=== PATIENT | male | born 1970 | race Caucasian/White ===

== ENCOUNTER 2023-11-01 23:14 | Inpatient (IN) | payer BC ==
[2023-11-02] MEDS ORDERED: POLYETHYLENE GLYCOL (HEALTHYLAX) 3350 17 GM PACKET PO PRN (00:04)
[2023-11-02] MEDS ORDERED: ONDANSETRON *ODT* 4 MG TABLET SL PRN (00:04)
[2023-11-02] MEDS ORDERED: P-EPHED 60MG/TRIPROLIDI 2.5MG TABLET PO PRN (00:04)
[2023-11-02] MEDS ORDERED: guaiFENesin 600 MG TABLET.ER (FP) PO PRN (00:04)
[2023-11-02] MEDS ORDERED: ACETAMINOPHEN 325 MG TABLET (FP) PO PRN (00:04)
[2023-11-02] MEDS ORDERED: IBUPROFEN 400 MG TABLET (FP) PO PRN (00:04)
[2023-11-02] MEDS ORDERED: BENZOCAINE/MENTHOL (CHLORASEPTIC ) LOZENGE MM PRN (00:04)
[2023-11-02] MEDS ORDERED: IBUPROFEN 600 MG TABLET (FP) PO PRN (00:04)
[2023-11-02] MEDS ORDERED: MAGNESIUM HYDROX 2400MG/30ML ORAL SUSPENSION 30 ML CUP PO PRN (00:04)
[2023-11-02] MEDS ORDERED: BENZONATATE 200 MG CAPSULE PO PRN (00:04)
[2023-11-02] MEDS ORDERED: LOPERAMIDE HCL 2 MG CAPSULE PO PRN (00:04)
[2023-11-02] MEDS ORDERED: DICYCLOMINE HCL 10 MG CAPSULE PO PRN (00:04)
[2023-11-02 00:05] VITALS: BMI 23.1
[2023-11-02] MEDS ORDERED: chlordiazePOXIDE HCL 25 MG CAPSULE PO PRN (00:06)
[2023-11-02] MEDS: chlordiazePOXIDE HCL 25 MG CAPSULE PO ONE (03:00)
[2023-11-02] MEDS ORDERED: chlordiazePOXIDE HCL 25 MG CAPSULE ONE (05:59)
[2023-11-02] MEDS: chlordiazePOXIDE HCL 25 MG CAPSULE PO SCH (06:00)
[2023-11-02] MEDS: PRENATAL VITAMINS W/ FOLIC ACID TABLET (FP) PO SCH (10:46)
[2023-11-02] MEDS: hydrOXYzine PAMOATE 25 MG CAPSULE (FP) PO PRN (10:46)
[2023-11-02] MEDS: THIAMINE 100 MG TABLET PO SCH (23:22)
[2023-11-02] MEDS: MELATONIN 5 MG TABLETS PO SCH (23:22)
[2023-11-03] MEDS: chlordiazePOXIDE HCL 25 MG CAPSULE PO SCH (05:58)
[2023-11-03 11:02] LABS: MCH 31.1 pg (25.7-33.7); MCHC 33.4 g/dl (32.0-35.9); MEAN CELL VOLUME 93.2 fl (80-96); MEAN PLT VOLUME 8.8 fl (7.5-11.1); PLATELET COUNT 183 10^3/uL (134-434); RBC 4.19 M/mm3 (4.00-5.60); RDW 14.6 % (11.9-15.9); WHITE BLOOD COUNT 3.9 K/mm3 (4.0-10.0)
[2023-11-03] MEDS: EMPAGLIFLOZIN (JARDIANCE) 10 MG TABLET PO SCH (19:38)
[2023-11-03] MEDS: metFORMIN HCL 500 MG TABLET (FP) PO SCH (22:23)
[2023-11-03] MEDS: METHOCARBAMOL 500 MG TABLET PO PRN (22:25)
[2023-11-04] MEDS ORDERED: chlordiazePOXIDE HCL 10 MG CAPSULE PO PRN
[2023-11-04] MEDS: chlordiazePOXIDE HCL 10 MG CAPSULE PO SCH (05:44)
[2023-11-04] MEDS: INSULIN ASPART SLIDING SCALE (NOVOLOG) 1 VIAL SQ SCH (07:38)
[2023-11-05] MEDS: chlordiazePOXIDE HCL 10 MG CAPSULE PO SCH (05:35)
[2023-11-05] MEDS: MAG HYDROX/AL HYDROX/SIMETH 30 ML UNIT-DOSE CUP PO PRN (14:38)
[2023-11-05] MEDS: BISMUTH SUBSALICYLATE 524 MG/30 ML PO PRN (17:16)
[2023-11-06] MEDS: chlordiazePOXIDE HCL 10 MG CAPSULE PO ONE (05:42)
[2023-11-06] MEDS ORDERED: INSULIN ASPART SLIDING SCALE (NOVOLOG) 1 VIAL SQ ONE (05:48)
[2023-11-06 09:03] VITALS: BP 142/96; PULSE 112; RESP 20; TEMP 97.6
== END 2023-11-06 09:28 | disposition home or self-care (01) | DRG 775 ==
LOC: YASAS 23:14 → Y3N 11-02 01:53
PROVIDERS: ADMIT Allergy & Immunology; ATTEND Allergy & Immunology
PROC: HZ2ZZZZ Detoxification Services for Substance Abuse Treatment (ICD-10-PCS; principal; 2023-11-02)
DX: F10.230 Alcohol dependence with withdrawal, uncomplicated (principal); E11.9 Type 2 diabetes mellitus without complications; Z79.84 Long term (current) use of oral hypoglycemic drugs
CPT/HCPCS: 36415; 80305; 82962; 85027; 86780; 93005; 93010

== ENCOUNTER 2023-11-07 23:45 | Inpatient (IN) | payer BC ==
[2023-11-08 00:31] VITALS: BMI 27.8
[2023-11-08] MEDS ORDERED: IBUPROFEN 600 MG TABLET (FP) PO PRN (08:00)
[2023-11-08] MEDS ORDERED: LORazepam 1 MG TABLET PO PRN (08:00)
[2023-11-08] MEDS ORDERED: BISMUTH SUBSALICYLATE 262 MG/15 ML BTL PO PRN (08:00)
[2023-11-08] MEDS ORDERED: hydrOXYzine PAMOATE 25 MG CAPSULE (FP) PO PRN (08:00)
[2023-11-08] MEDS ORDERED: IBUPROFEN 400 MG TABLET (FP) PO PRN (08:00)
[2023-11-08] MEDS ORDERED: DICYCLOMINE HCL 10 MG CAPSULE PO PRN (08:00)
[2023-11-08] MEDS ORDERED: BENZOCAINE/MENTHOL (CHLORASEPTIC ) LOZENGE MM PRN (08:00)
[2023-11-08] MEDS ORDERED: LOPERAMIDE HCL 2 MG CAPSULE PO PRN (08:00)
[2023-11-08] MEDS ORDERED: BENZONATATE 200 MG CAPSULE PO PRN (08:00)
[2023-11-08] MEDS ORDERED: NALOXONE HCL (KLOXXADO) 8 MG SPRAY NS PRN (08:00)
[2023-11-08] MEDS ORDERED: ONDANSETRON *ODT* 4 MG TABLET SL PRN (08:00)
[2023-11-08] MEDS ORDERED: MAG HYDROX/AL HYDROX/SIMETH 30 ML UNIT-DOSE CUP PO PRN (08:00)
[2023-11-08] MEDS ORDERED: guaiFENesin 600 MG TABLET.ER (FP) PO PRN (08:00)
[2023-11-08] MEDS ORDERED: ACETAMINOPHEN 325 MG TABLET (FP) PO PRN (08:00)
[2023-11-08] MEDS ORDERED: POLYETHYLENE GLYCOL (HEALTHYLAX) 3350 17 GM PACKET PO PRN (08:00)
[2023-11-08] MEDS ORDERED: MAGNESIUM HYDROX 2400MG/30ML ORAL SUSPENSION 30 ML CUP PO PRN (08:00)
[2023-11-08] MEDS ORDERED: NALOXONE HCL 0.4 MG/ML VIAL IM PRN (08:00)
[2023-11-08] MEDS ORDERED: EMPAGLIFLOZIN (JARDIANCE) 10 MG TABLET PO SCH (10:00)
[2023-11-08] MEDS: LORazepam 2 MG TABLET PO SCH (10:36)
[2023-11-08] MEDS: EMPAGLIFLOZIN (JARDIANCE) 10 MG TABLET PO SCH (10:36)
[2023-11-08] MEDS: metFORMIN HCL 500 MG TABLET (FP) PO SCH (10:36)
[2023-11-08] MEDS: PRENATAL VITAMINS W/ FOLIC ACID TABLET (FP) PO SCH (10:37)
[2023-11-08] MEDS: INSULIN ASPART SLIDING SCALE (NOVOLOG) 1 VIAL SQ SCH (11:20)
[2023-11-08] MEDS: ACAMPROSATE CALCIUM 333 MG TABLET.DR PO SCH (13:25)
[2023-11-08] MEDS: THIAMINE 100 MG TABLET PO SCH (22:28)
[2023-11-08] MEDS: METHOCARBAMOL 500 MG TABLET PO PRN (22:29)
[2023-11-08] MEDS: MELATONIN 5 MG TABLETS PO SCH (22:29)
[2023-11-09] MEDS ORDERED: INSULIN ASPART SLIDING SCALE (NOVOLOG) 1 VIAL SQ ONE (06:41)
[2023-11-09 12:36] LABS: HEMATOCRIT 42.3 % (35.4-49); HEMOGLOBIN 14.6 GM/dL (11.7-16.9); MCHC 34.4 g/dl (32.0-35.9); MEAN CELL VOLUME 93.1 fl (80-96); MEAN PLT VOLUME 9.1 fl (7.5-11.1); PLATELET COUNT 216 10^3/uL (134-434); RBC 4.55 M/mm3 (4.00-5.60); WHITE BLOOD COUNT 5.2 K/mm3 (4.0-10.0)
[2023-11-09 12:57] LABS: POTASSIUM 4.1 mmol/L (3.5-5.1)
[2023-11-09 13:02] LABS: CALCIUM 9.3 mg/dL (8.5-10.1)
[2023-11-09 13:03] LABS: ALBUMIN 3.4 g/dl (3.4-5.0)
[2023-11-09 13:05] LABS: BILIRUBIN,TOTAL 0.7 mg/dL (0.2-1)
[2023-11-09 13:06] LABS: CREATININE 0.9 mg/dL (0.55-1.3)
[2023-11-09 13:08] LABS: TOT PROT 6.7 g/dl (6.4-8.2)
[2023-11-09] MEDS: LACTULOSE 20 GM/30 ML UDC (FOR ORAL USE ONLY) PO SCH (22:26)
[2023-11-10] MEDS: LORazepam 1 MG TABLET PO SCH (05:59)
[2023-11-10] MEDS ORDERED: INSULIN ASPART SLIDING SCALE (NOVOLOG) 1 VIAL SQ ONE (06:54)
[2023-11-10 09:29] VITALS: PULSE 93
[2023-11-10 13:03] VITALS: BP 140/100; RESP 16; TEMP 97.6
[2023-11-11] MEDS ORDERED: LORazepam 0.5 MG TABLET PO PRN
[2023-11-11] MEDS ORDERED: LORazepam 0.5 MG TABLET PO SCH (05:00)
[2023-11-12] MEDS ORDERED: LORazepam 0.5 MG TABLET PO ONE (05:00)
== END 2023-11-10 13:05 | disposition left against medical advice (07) | DRG 770 ==
LOC: YASAS 23:45 → Y3N 11-08 08:12
PROVIDERS: ADMIT Allergy & Immunology; ATTEND Surgery
PROC: HZ2ZZZZ Detoxification Services for Substance Abuse Treatment (ICD-10-PCS; principal; 2023-11-08)
DX: F10.230 Alcohol dependence with withdrawal, uncomplicated (principal); E11.65 Type 2 diabetes mellitus with hyperglycemia; Z79.84 Long term (current) use of oral hypoglycemic drugs; R79.89 Other specified abnormal findings of blood chemistry
CPT/HCPCS: 36415; 80053; 80305; 80307; 82140; 82962; 85027; 86780; 93005; 93010

== ENCOUNTER 2023-12-14 14:21 | Inpatient (IN) | payer BC ==
[2023-12-14 15:32] VITALS: BMI 25.1
[2023-12-14] MEDS ORDERED: NICOTINE POLACRILEX 2 MG LOZENGE BC PRN (20:00)
[2023-12-14] MEDS ORDERED: ONDANSETRON *ODT* 4 MG TABLET SL PRN (20:00)
[2023-12-14] MEDS ORDERED: LOPERAMIDE HCL 2 MG CAPSULE PO PRN (20:00)
[2023-12-14] MEDS ORDERED: BENZONATATE 200 MG CAPSULE PO PRN (20:00)
[2023-12-14] MEDS ORDERED: MAGNESIUM HYDROX 2400MG/30ML ORAL SUSPENSION 30 ML CUP PO PRN (20:00)
[2023-12-14] MEDS ORDERED: NICOTINE POLACRILEX 2 MG GUM BUC PRN (20:00)
[2023-12-14] MEDS ORDERED: BISMUTH SUBSALICYLATE 524 MG/30 ML PO PRN (20:00)
[2023-12-14] MEDS ORDERED: guaiFENesin 600 MG TABLET.ER (FP) PO PRN (20:00)
[2023-12-14] MEDS ORDERED: BENZOCAINE/MENTHOL (CHLORASEPTIC ) LOZENGE MM PRN (20:00)
[2023-12-14] MEDS ORDERED: POLYETHYLENE GLYCOL (HEALTHYLAX) 3350 17 GM PACKET PO PRN (20:00)
[2023-12-14] MEDS ORDERED: MAG HYDROX/AL HYDROX/SIMETH 30 ML UNIT-DOSE CUP PO PRN (20:00)
[2023-12-14] MEDS ORDERED: IBUPROFEN 400 MG TABLET (FP) PO PRN (20:00)
[2023-12-14] MEDS ORDERED: ACETAMINOPHEN 325 MG TABLET (FP) PO PRN (20:00)
[2023-12-14] MEDS ORDERED: MELATONIN 5 MG TABLETS ONE (21:53)
[2023-12-14] MEDS ORDERED: IBUPROFEN 600 MG TABLET (FP) PO ONE (21:53)
[2023-12-14] MEDS ORDERED: DICYCLOMINE HCL 10 MG CAPSULE ONE (21:53)
[2023-12-14] MEDS: MELATONIN 5 MG TABLETS PO SCH (21:55)
[2023-12-14] MEDS: DICYCLOMINE HCL 10 MG CAPSULE PO PRN (21:55)
[2023-12-14] MEDS: IBUPROFEN 600 MG TABLET (FP) PO PRN (21:55)
[2023-12-14] MEDS: THIAMINE 100 MG TABLET PO SCH (22:48)
[2023-12-15] MEDS: metFORMIN HCL 500 MG TABLET (FP) PO SCH (09:30)
[2023-12-15] MEDS: EMPAGLIFLOZIN (JARDIANCE) 10 MG TABLET PO SCH (10:38)
[2023-12-15] MEDS: diazePAM 5 MG TABLET PO SCH (10:38)
[2023-12-15] MEDS: PRENATAL VITAMINS W/ FOLIC ACID TABLET (FP) PO SCH (10:38)
[2023-12-15] MEDS ORDERED: diazePAM 5 MG TABLET ONE (10:39)
[2023-12-15] MEDS ORDERED: PRENATAL VITAMINS W/ FOLIC ACID TABLET (FP) PO ONE (10:39)
[2023-12-15] MEDS: METHOCARBAMOL 500 MG TABLET PO PRN (10:46)
[2023-12-15] MEDS ORDERED: METHOCARBAMOL 500 MG TABLET ONE (10:46)
[2023-12-15] MEDS: FOLIC ACID 1 MG TABLET (FP) PO SCH (10:59)
[2023-12-15 11:57] LABS: POTASSIUM 4.2 mmol/L (3.5-5.1)
[2023-12-15 12:01] LABS: CALCIUM 8.6 mg/dL (8.5-10.1)
[2023-12-15 12:02] LABS: ALBUMIN 3.4 g/dl (3.4-5.0); BLOOD UREA NITROGEN 14.6 mg/dL (7-18)
[2023-12-15 12:05] LABS: CREATININE 0.8 mg/dL (0.55-1.3)
[2023-12-15 12:06] LABS: BILIRUBIN,TOTAL 2.4 mg/dL (0.2-1); HEMATOCRIT 41.1 % (35.4-49); MCH 32.7 pg (25.7-33.7); MEAN CELL VOLUME 95.9 fl (80-96); MEAN PLT VOLUME 8.6 fl (7.5-11.1); PLATELET COUNT 179 10^3/uL (134-434); RBC 4.28 M/mm3 (4.00-5.60); RDW 15.2 % (11.9-15.9); TOT PROT 6.4 g/dl (6.4-8.2)
[2023-12-15] MEDS: cloNIDine HCL 0.1 MG TABLET PO PRN (13:27)
[2023-12-16] MEDS: hydrOXYzine PAMOATE 25 MG CAPSULE (FP) PO PRN (22:16)
[2023-12-17] MEDS: diazePAM 5 MG TABLET PO SCH (05:35)
[2023-12-17] MEDS: diazePAM 5 MG TABLET PO PRN (09:57)
[2023-12-18] MEDS: diazePAM 5 MG TABLET PO SCH (05:45)
[2023-12-19] MEDS: diazePAM 5 MG TABLET PO ONE (05:54)
[2023-12-19 08:38] VITALS: BP 135/90; PULSE 88; RESP 17; TEMP 97.8
== END 2023-12-19 09:46 | disposition home or self-care (01) | DRG 775 ==
LOC: YASAS 14:21 → Y3N 12-15 11:10
PROVIDERS: ADMIT Allergy & Immunology; ATTEND Surgery
PROC: HZ2ZZZZ Detoxification Services for Substance Abuse Treatment (ICD-10-PCS; principal; 2023-12-15)
DX: F10.230 Alcohol dependence with withdrawal, uncomplicated (principal); F10.220 Alcohol dependence with intoxication, uncomplicated; F32.A Depression, unspecified; E11.9 Type 2 diabetes mellitus without complications; Z79.84 Long term (current) use of oral hypoglycemic drugs
CPT/HCPCS: 36415; 80053; 80305; 82962; 85027; 86780; 93005; 93010

== ENCOUNTER 2024-04-13 19:06 | Emergency (ER) | payer BC ==
[2024-04-13 19:10] VITALS: BP 128/85; PULSE 113; RESP 18; TEMP 97.8; BMI 25.1
[2024-04-13] MEDS ORDERED: ACETAMINOPHEN 325 MG TABLET (FP) ONE (20:08)
[2024-04-13] MEDS: ACETAMINOPHEN 500 MG TABLET (FP) PO ONE (20:12)
[2024-04-14 00:22] LABS: HIV INTERPRETATION NEGATIVE (NEGATIVE)
== END 2024-04-13 23:07 | disposition home or self-care (01) ==
LOC: JER 19:06
DX: F10.920 Alcohol use, unspecified with intoxication, uncomplicated (principal); R51.9 Headache, unspecified; Y90.9 Presence of alcohol in blood, level not specified
CPT/HCPCS: 36415; 70450-TC; 72125-TC; 86803; 87389; 99284-25

== ENCOUNTER 2024-04-14 01:27 | Inpatient (IN) | payer BC ==
[2024-04-14 01:37] VITALS: BMI 24.8
[2024-04-14] MEDS ORDERED: IBUPROFEN 400 MG TABLET (FP) PO PRN (01:51)
[2024-04-14] MEDS ORDERED: BENZONATATE 200 MG CAPSULE PO PRN (01:51)
[2024-04-14] MEDS ORDERED: POLYETHYLENE GLYCOL (HEALTHYLAX) 3350 17 GM PACKET PO PRN (01:51)
[2024-04-14] MEDS ORDERED: ONDANSETRON *ODT* 4 MG TABLET SL PRN (01:51)
[2024-04-14] MEDS ORDERED: NALOXONE (NYS OPIOID OVERDOSE PROGRAM) 4 MG/0.1 ML SPRAY NS PRN (01:51)
[2024-04-14] MEDS ORDERED: BENZOCAINE/MENTHOL (CHLORASEPTIC ) LOZENGE MM PRN (01:51)
[2024-04-14] MEDS ORDERED: guaiFENesin 600 MG TABLET.ER (FP) PO PRN (01:51)
[2024-04-14] MEDS ORDERED: MAGNESIUM HYDROX 2400MG/30ML ORAL SUSPENSION 30 ML CUP PO PRN (01:51)
[2024-04-14] MEDS ORDERED: LOPERAMIDE HCL 2 MG CAPSULE PO PRN (01:51)
[2024-04-14] MEDS ORDERED: BISMUTH SUBSALICYLATE 524 MG/30 ML PO PRN (01:51)
[2024-04-14] MEDS ORDERED: MAG HYDROX/AL HYDROX/SIMETH 30 ML UNIT-DOSE CUP PO PRN (01:51)
[2024-04-14] MEDS ORDERED: NALOXONE (NARCAN) HCL 4 MG/0.1 ML SPRAY NS PRN (01:51)
[2024-04-14] MEDS ORDERED: DICYCLOMINE HCL 10 MG CAPSULE PO PRN (01:51)
[2024-04-14] MEDS: hydrOXYzine PAMOATE 25 MG CAPSULE (FP) PO PRN (03:02)
[2024-04-14] MEDS: METHOCARBAMOL 500 MG TABLET PO PRN (03:02)
[2024-04-14] MEDS ORDERED: diazePAM 5 MG TABLET PO PRN (09:15)
[2024-04-14] MEDS: diazePAM 5 MG TABLET PO SCH (10:04)
[2024-04-14] MEDS: PRENATAL VITAMINS W/ FOLIC ACID TABLET (FP) PO SCH (10:04)
[2024-04-14] MEDS: EMPAGLIFLOZIN (JARDIANCE) 10 MG TABLET PO SCH (10:07)
[2024-04-14] MEDS: metFORMIN HCL 500 MG TABLET (FP) PO SCH (10:07)
[2024-04-14 14:37] LABS: CHLORIDE 101 mmol/L (98-107); POTASSIUM 4.1 mmol/L (3.5-5.1); SODIUM 136 mmol/L (136-145)
[2024-04-14 14:42] LABS: CALCIUM 8.6 mg/dL (8.5-10.1)
[2024-04-14 14:43] LABS: ALBUMIN 3.6 g/dl (3.4-5.0); ANION GAP 9 mmol/L (4-13); BLOOD UREA NITROGEN 10.8 mg/dL (7-18); CO2 26 mmol/L (21-32); GLUCOSE,RANDOM 116 mg/dL (74-106)
[2024-04-14 14:44] LABS: HEMATOCRIT 42.3 % (35.4-49); HEMOGLOBIN 14.2 GM/dL (11.7-16.9); MCH 33.6 pg (25.7-33.7); MCHC 33.6 g/dl (32.0-35.9); MEAN CELL VOLUME 99.9 fl (80-96); MEAN PLT VOLUME 8.6 fl (7.5-11.1); PLATELET COUNT 228 10^3/uL (134-434); RBC 4.23 M/mm3 (4.00-5.60); RDW 12.9 % (11.9-15.9)
[2024-04-14 14:46] LABS: CREATININE 0.7 mg/dL (0.55-1.3); SGOT/AST 56 U/L (15-37); SGPT/ALT 29 U/L (13-61)
[2024-04-14 14:48] LABS: BILIRUBIN,TOTAL 2.1 mg/dL (0.2-1); TOT PROT 6.8 g/dl (6.4-8.2)
[2024-04-14 14:49] LABS: ALK PHOS 58 U/L (45-117)
[2024-04-14] MEDS: ACETAMINOPHEN 325 MG TABLET (FP) PO PRN (17:21)
[2024-04-14] MEDS: IBUPROFEN 600 MG TABLET (FP) PO PRN (22:23)
[2024-04-14] MEDS: THIAMINE 100 MG TABLET PO SCH (22:24)
[2024-04-14] MEDS: MELATONIN 5 MG TABLETS PO SCH (22:24)
[2024-04-16] MEDS: diazePAM 5 MG TABLET PO SCH (05:55)
[2024-04-17] MEDS: diazePAM 5 MG TABLET PO SCH (05:31)
[2024-04-18] MEDS: diazePAM 5 MG TABLET PO ONE (06:29)
[2024-04-18 06:42] VITALS: RESP 16
[2024-04-18 09:10] VITALS: BP 123/84; PULSE 80; TEMP 97.4
== END 2024-04-18 09:30 | disposition home or self-care (01) | DRG 775 ==
LOC: YASAS 01:27 → Y3N 02:23
PROVIDERS: ADMIT Allergy & Immunology; ATTEND Surgery
PROC: HZ2ZZZZ Detoxification Services for Substance Abuse Treatment (ICD-10-PCS; principal; 2024-04-14)
DX: F10.230 Alcohol dependence with withdrawal, uncomplicated (principal); F19.24 Other psychoactive substance dependence with psychoactive substance-induced mood disorder; E11.9 Type 2 diabetes mellitus without complications; Z79.84 Long term (current) use of oral hypoglycemic drugs; S01.81XD Laceration without foreign body of other part of head, subsequent encounter; W19.XXXD Unspecified fall, subsequent encounter
CPT/HCPCS: 36415; 80053; 80305; 80307; 82962; 85027; 86780